=== PATIENT | female | born 1985 | race African-American/Black ===

== ENCOUNTER 2018-09-09 12:18 | Emergency (ER) | payer BC, OTHER ==
[2018-09-09 12:43] VITALS: TEMP 98.9; BMI 31.9
--- NOTE | 2018-09-09 13:53 | PDOC ---
History of Present Illness - General Chief Complaint: Nausea/Vomiting Stated Complaint: WEAKNESS (11 WKS ) - History of Present Illness Initial Comments: The pt is a 33F at 11wks by LMP who presents for evaluation of 3 weeks of N/V. Patient reports approximately emesis 4 times daily. Reports symptoms also occurred with her previous pregnancies, however, not as severe. She states that she has not been able to tolerate food and only very small amounts of liquids. Sent by orderlies teacher for concern of dehydration Endorses WOLF and generalized weakness that she attributes to poor PO intake Denies fevers, abdominal pain, dysuria, vaginal bleeding or discharge 09/09/18 13:59 Past History - Past Medical History Allergies/Adverse Reactions: Allergies Allergy/AdvReac Type Severity Reaction Status Date / Time No Known Allergies Allergy Verified 09/09/18 12:38 Home Medications: Ambulatory Orders Metoclopramide HCl [Reglan -] 10 mg PO BID #14 tablet 09/09/18 No122/Iron/Folic Acid [ Multi Tablet] 1 each PO DAILY 09/09/18 COPD: No CHF: No - Suicide/Smoking/Psychosocial Hx Smoking History: Never smoked Have you smoked in the past 12 months: No Information on smoking cessation initiated: No Hx Alcohol Use: No Drug/Substance Use Hx: No Review of Systems - Review of Systems Able to Perform ROS?: Yes Comments:: GENERAL/CONSTITUTIONAL: No fever or chills. No weakness HEAD, EYES, EARS, NOSE AND THROAT: No change in vision. No ear pain or discharge. No sore throat CARDIOVASCULAR: No chest pain or shortness of breath RESPIRATORY: Denies cough, hemoptysis GASTROINTESTINAL: per HPI GENITOURINARY: No dysuria, frequency, or change in urination MUSCULOSKELETAL: No joint or muscle swelling or pain. No neck or back pain SKIN: No rash NEUROLOGIC: No headache, vertigo, loss of consciousness, or change in strength/ sensation ENDOCRINE: No increased thirst. No abnormal weight change HEMATOLOGIC/LYMPHATIC: No anemia, easy bleeding, or history of blood clots ALLERGIC/IMMUNOLOGIC: No hives or skin allergy 09/09/18 13:52 Is the patient limited Greek proficient: No *Physical Exam - Vital Signs Last Vital Signs Temp Pulse Resp BP Pulse Ox 98.9 F 85 16 128/93 100 09/09/18 12:39 09/09/18 12:39 09/09/18 12:39 09/09/18 12:39 09/09/18 12:39 - Physical Exam Comments: GENERAL: Awake, alert, and fully oriented, in no acute distress HEAD: No signs of trauma, normocephalic, atraumatic EYES: PERRLA, EOMI, sclera anicteric, conjunctiva clear ENT: Hearing grossly normal, nares patent, oropharynx clear without exudates. Moist mucosa LUNGS: No distress, speaks full sentences, clear to auscultation bilaterally HEART: Regular rate and rhythm, normal S1 and S2, no murmurs appreciated, peripheral pulses normal and equal bilaterally ABDOMEN: Soft, NTTP, normoactive bowel sounds. No guarding, no rebound EXTREMITIES : Normal inspection, Normal range of motion, no edema. No clubbing or cyanosis NEUROLOGICAL: Cranial nerves II through XII grossly intact. Normal speech, normal gait, no focal sensorimotor deficits SKIN: Warm, Dry, normal turgor, no rashes or lesions noted 09/09/18 13:52 Moderate Sedation - Procedure Monitoring Vital Signs: Procedure Monitoring Vital Signs Temperature 98.9 F 09/09/18 12:39 Pulse Rate 85 09/09/18 12:39 Respiratory Rate 16 09/09/18 12:39 Blood Pressure 128/93 09/09/18 12:39 O2 Sat by Pulse Oximetry (%) 100 09/09/18 12:39 ED Treatment Course - LABORATORY CBC & Chemistry Diagram: 09/09/18 14:23 09/09/18 14:23 Medical Decision Making - Medical Decision Making The patient is a 33F at 11wks by LMP who presents for persistent emesis. ED Course CMP, CBC 1L NS Reglan 10mg IV once 09/09/18 14:03 FHR: 183 09/09/18 14:24 Symptoms improved s/p Reglan and IVF Rx for Reglan Discharge in instructions and return precautions given Plan for D/C w/ PCP f/u Patient in agreement and verbalized understanding Dispo: home 09/09/18 17:10 *DC/Admit/Observation/Transfer Diagnosis at time of Disposition: Nausea & vomiting Qualifiers: Vomiting type: unspecified Vomiting Intractability: unspecified Qualified Code( s): R11.2 - Nausea with vomiting, unspecified - Discharge Dispostion Disposition: HOME Condition at time of disposition: Improved Decision to Admit order: No - Prescriptions Prescriptions: Metoclopramide HCl [Reglan -] 10 mg PO BID #14 tablet - Referrals - Patient Instructions Printed Discharge Instructions: DI for Vomiting -- Adult Additional Instructions: You were seen in the Emergency Department for nausea and vomiting. Please review the handout provided at discharge. Please follow up with your primary care provider. A prescription for Reglan was sent to the pharmacy that you specified, take as directed. Return to the Emergency Department for worsening of symptoms, inability to keep fluids down, vaginal bleeding/discharge, or any new/concerning symptoms. - Post Discharge Activity
[2018-09-09] MEDS ORDERED: ACETAMINOPHEN 1000 MG/100 ML VIAL (NON FORMULARY) IVPB ONE (14:12)
[2018-09-09] MEDS ORDERED: SODIUM CHLORIDE 0.9% 500 ML INFUS.BAG IV ONE (14:12)
[2018-09-09] MEDS ORDERED: ONDANSETRON 4 MG/2 ML VIAL IVPUSH ONE (14:12)
[2018-09-09] MEDS ORDERED: ACETAMINOPHEN INJECTION 100 ML IVPB ONE (14:23)
[2018-09-09] MEDS ORDERED: METOCLOPRAMIDE HCL INJECTION 10 MG/2 ML VIAL ONE (14:23)
[2018-09-09] MEDS ORDERED: METOCLOPRAMIDE HCL INJECTION 10 MG/2 ML VIAL IVPUSH ONE (14:23)
[2018-09-09 14:30] LABS: BASO % 1.2 % (0-2.0); EOS % 0.1 % (0-4.5); LYMPH % 28.6 % (8-40); MCH 21.8 pg (25.7-33.7); MCHC 34.3 g/dl (32.0-36.0); MEAN CELL VOLUME 63.6 fl (80-96); MEAN PLT VOLUME 8.7 fl (7.5-11.1); MONO % 7.9 % (3.8-10.2); NEUT % 62.2 % (42.8-82.8); PLATELET COUNT 296 K/MM3 (134-434); RBC 5.97 M/mm3 (3.60-5.2); RDW 14.5 % (11.6-15.6); WHITE BLOOD COUNT 7.2 K/mm3 (4.0-10.0)
--- NOTE | 2018-09-09 14:54 | PDOC ---
Attending Attestation - Resident Resident Name: Luis Chandler - ED Attending Attestation I have performed the following: I have examined & evaluated the patient, The case was reviewed & discussed with the resident, I agree w/resident's findings & plan - [facility] HPI: 09/09/18 14:50 33F at 11wks by LMP who presents for evaluation of 3 weeks of N/V, nonbloody or nonbilious. Patient reports approximately emesis 4 times daily. Reports symptoms also occurred with her previous pregnancies. no meds taken. taking vitamins. denies AP or urinary sx or VB. - Physicial Exam PE: 09/09/18 14:51 NAD, well appearing, PERRL, EOMI, dry membranes, nl conjunctiva, anicteric; neck supple. lungs clear, RRR, abdomen soft nontender. WOMACK x4, no focal neuro deficits. No peripheral edema. normal color for ethnicity, WWP. - Medical Decision Making 09/09/18 14:51 See HPI for details Vital signs reviewed, wnl. laboratory results and imaging reviewed, basic labs and lytes wnl, notable for normal lipase most likely related emesis syndrome. ED course: IVF, reglan and tylenol for headache, likely from vomiting bedside pelvic TAB sono with live IUP at 180 bpm. PO challenged, tolerated light meals, small bites rx reglan prn for n/v OB followup as outpatient. Dispo: Pt informed of my clinical impression, treatment recommendations and disposition plan. All questions answered to patient's satisfaction and expressed understanding and comfort with this. Reasons for returning to the ED sooner discussed with the patient otherwise, follow up with primary care physician. At the time of discharge, the patient is alert, clinically improved, tolerating po and verbalizes understanding of instructions. Patient does not suffer from an acute life-threatening medical condition at this time she is safe for outpatient follow-up. 09/09/18 17:17
[2018-09-09 15:03] LABS: ALK PHOS 62 U/L (45-117); ANION GAP 10 MMOL/L (8-16); BILIRUBIN,TOTAL 0.5 mg/dL (0.2-1); BLOOD UREA NITROGEN 10 mg/dL (7-18); CALCIUM 9.6 mg/dL (8.5-10.1); CHLORIDE 96 mmol/L (98-107); CO2 26 mmol/L (21-32); CREATININE 0.8 mg/dL (0.55-1.3); GLUCOSE,RANDOM 59 mg/dL (74-106); POTASSIUM 3.8 mmol/L (3.5-5.1); SGOT/AST 17 U/L (15-37); SGPT/ALT 20 U/L (13-61); SODIUM 131 mmol/L (136-145); TOT PROT 7.8 g/dl (6.4-8.2)
[2018-09-09 15:55] LABS: ANISOCYTOSIS 2+
[2018-09-09 17:24] VITALS: BP 127/77; PULSE 73
== END 2018-09-09 17:24 | disposition home or self-care (01) ==
LOC: JER 12:18
PROC: 3E033GC Introduction of Other Therapeutic Substance into Peripheral Vein, Percutaneous Approach (ICD-10-PCS; principal; 2018-09-09)
PROC: 3E033NZ Introduction of Analgesics, Hypnotics, Sedatives into Peripheral Vein, Percutaneous Approach (ICD-10-PCS; 2018-09-09)
PROC: BY49ZZZ Ultrasonography of First Trimester, Single Fetus (ICD-10-PCS; 2018-09-09)
DX: O26.891 Other specified pregnancy related conditions, first trimester (principal); O21.0 Mild hyperemesis gravidarum; Z3A.11 11 weeks gestation of pregnancy
CPT/HCPCS: 36415; 80053; 85025; 99282-25; J0131